=== PATIENT | female | born 1950 ===

== ENCOUNTER 2017-03-18 05:00 | Day surgery (SDC) | payer OTHER ==
[~2017-03-18 05:00] MED LIST: ATORVASTATIN CA20 MG PO; AVAPRO300 MG PO; CARDURA1 MG PO; FOLIC ACID1 MG PO; GLUCOTROL XL5 MG PO; HYDRALAZINE PO; JANUVIA100 MG PO; LASIX20 MG PO; PEPCID20 MG PO; PROTONIX40 M1 PO; VERAPAMIL ER240 MG PO
== END 2017-03-18 12:40 | disposition home or self-care (01) ==
LOC: CIR.AMB 05:00
DX: N20.0 Calculus of kidney (principal)